=== PATIENT | female | born 1955 | race Caucasian/White ===

== ENCOUNTER 2025-05-29 20:42 | Emergency (ER) | payer OTHER, SELFPAY ==
[2025-05-29] VITALS (14 sets, daily range): BP systolic 148–219; BP diastolic 79–119; PULSE 76–135; RESP 15–26; TEMP 36.7; O2SAT 97–99; BMI 27.4
--- NOTE | 2025-05-29 21:04 | EKG_ITS ---
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
--- NOTE | 2025-05-29 21:13 | ED.TRAUMA ---
HPI - Trauma General Chief Complaint: Trauma Stated Complaint: Fall, trauma to face Time Seen by Provider: 05/29/25 21:12 Source: patient Mode of arrival: Ambulatory History of Present Illness HPI narrative: Patient is a 69-year-old female with a past medical history of AFib on Eliquis comes into the ED from home for evaluation mechanical trip and fall, states that she fell on her face, no LOC, was able to stand bear weight ambulate immediately after, states that she tripped on the tip of her sandals. She is only complaining of some pain to her teeth, states that she feels like she broke her tooth. She states that she is also feeling some pain to her sternum after the fall. But denies any other symptoms at this time. Denies any syncopal or presyncopal symptoms. Related Data Allergies Allergy/AdvReac Type Severity Reaction Status Date / Time Sulfa (Sulfonamide Allergy Mild Hives Verified 05/29/25 21:03 Antibiotics) Review of Systems Review of Systems Narrative: General: Positive ground level fall Denies fever, chills, weight loss HEENT: Positive broken tooth Denies headache, eye drainage, eye irritation, sore throat, voice change Cardiovascular: Denies any chest pain, palpitations, tachycardia Respiratory: Denies any shortness of breath, cough, wheeze, stridor GI/: Denies any abdominal pain, nausea, vomiting, diarrhea, bright red blood per rectum, melanotic stools, urinary frequency, urinary retention, dysuria, hematuria MSK: Denies any joint pain, muscle pains, swelling Skin: Denies any rashes, lesions, discoloration Neuro: Denies any headache, lightheadedness, dizziness, fainting, weakness Psych: Denies SI/HI Patient History Social History Smoking Status: Never smoker Smoking Status: Never smoker Exam Narrative Exam Narrative: General: Cooperative, well-developed, not in acute distress HEENT: Bleeding noted to the mouth, PERRLA, normal sclera, eyelids normal, no tenderness to palpation of the midline cervical spine however did place patient in cervical collar for precautions Neck: Active full range of motion, atraumatic Chest: Normal to inspection, negative crepitus, no overlying erythema ecchymosis Respiratory: Normal respiratory effort, not in acute respiratory distress, clear to auscultation bilaterally negative cough, wheeze, tachypnea, rhonchi, rales Cardiology: Regular rate rhythm negative gallop, murmur, rubs GI/: No tenderness to palpation, soft, non rigid, normal to inspection, exam deferred MSK: Full active range of motion in all 4 extremities, atraumatic, no tenderness to palpation of any bony prominences Skin: No rashes or lesions noted Neuro: Alert awake oriented x3, moves all 4 extremities spontaneously, cranial nerves intact, able to answer all questions appropriately follows commands appropriately Psych: Cooperative, negative suicidal or homicidal ideations Initial Vital Signs Initial Vital Signs: Vital Signs Temperature 98.0 F 05/29/25 20:59 Pulse Rate 115 H 05/29/25 20:59 Respiratory Rate 20 05/29/25 20:59 Blood Pressure 148/89 H 05/29/25 20:59 Pulse Oximetry 99 05/29/25 20:59 Oxygen Delivery Method Room Air 05/29/25 20:59 Course Orders Ordered: ED Orders 05/29/25 21:04 EKG-12 Lead Stat 05/29/25 21:15 CT cervical spine wo con Stat CT chest wo con Stat CT head/brain wo con Stat BMP [Basic Metabolic Panel] Stat CBC Auto Diff [Complete Blood Count AUTO DIFF] Stat PT [Prothrombin Time INR] Stat PTT Partial Thromboplastin Michael Stat Discontinued Medications Hydromorphone HCl (Hydromorphone 1 Mg Inj) 1 mg IV NOW ONE Stop: 05/29/25 23:21 Last Admin: 05/29/25 23:22 Dose: 1 mg Documented By: Morphine Sulfate (Morphine 4 Mg/Ml Inj) 4 mg IV NOW ONE Stop: 05/29/25 21:16 Last Admin: 05/29/25 21:21 Dose: 4 mg Documented By: WINDY Morphine Sulfate (Morphine 4 Mg/Ml Inj) 4 mg IV NOW ONE Stop: 05/29/25 21:53 Last Admin: 05/29/25 22:01 Dose: 4 mg Documented By: Prothrombin Complex Concent (Human) (Prothrombin Cplx(Pcc)4fact 1,000 Unit/40 Ml Vial) 2,000 unit IV NOW ONE Stop: 05/29/25 22:35 Last Admin: 05/29/25 22:57 Dose: 2,000 unit Documented By: Vital Signs Vital signs: Vital Signs - 8 hr 05/29/25 20:59 05/29/25 21:07 05/29/25 21:08 Temperature 98.0 F Pulse Rate 115 H 128 H Respiratory Rate 20 Blood Pressure 148/89 H 154/86 H Pulse Oximetry 99 Oxygen Delivery Method Room Air 05/29/25 21:08 05/29/25 21:30 05/29/25 21:30 Temperature Pulse Rate 135 H 78 Respiratory Rate 23 21 Blood Pressure 163/98 H Pulse Oximetry Oxygen Delivery Method 05/29/25 21:51 05/29/25 21:51 05/29/25 22:00 Temperature Pulse Rate 124 H 76 Respiratory Rate 20 19 Blood Pressure 179/105 H Pulse Oximetry 99 99 Oxygen Delivery Method Room Air 05/29/25 22:00 05/29/25 22:30 05/29/25 22:31 Temperature Pulse Rate 83 Respiratory Rate 25 H Blood Pressure 165/88 H 219/98 H Pulse Oximetry 98 Oxygen Delivery Method 05/29/25 22:31 05/29/25 22:39 05/29/25 22:40 Temperature Pulse Rate 83 84 Respiratory Rate 23 15 Blood Pressure 180/90 H Pulse Oximetry 99 98 Oxygen Delivery Method Room Air MDM - Trauma Differential Diagnosis Differential diagnosis: Likely other (Closed head injury, rib fracture, tooth avulsion/fracture, ground level fall, contusion) Lab Data 05/29/25 21:15 05/29/25 21:15 Labs: Lab Results 05/29/25 Range/Units 21:15 WBC 7.2 (4.5-11.0) X10^3/uL RBC 4.55 (4.0-5.2) X10^6/uL Hgb 12.1 (12.0-16.0) g/dL Hct 37.0 (36-46) % MCV 81.3 (80-100) fL MCH 26.6 (26-34) PG MCHC 32.8 (30-36) % RDW 16.2 H (11.6-14.8) % Plt Count 216 (150-400) X10^3/uL Neut % (Auto) 53.9 (50-75) % Lymph % (Auto) 36.3 (25-40) % [place] % (Auto) 6.5 (3-14) % Eos % (Auto) 2.3 (2-4) % Baso % (Auto) 1.0 (0-2) % Neut # (Auto) 3900 (7053-2483) /uL Lymph # (Auto) 2600 (4776-7599) /uL [place] # (Auto) 500 (0-900) /uL Eos # (Auto) 200 (0-450) /uL Baso # (Auto) 100 (0-100) /uL PT 11.5 (9.4-12.5) SECONDS INR 1.0 (0.9-1.3) APTT 31 (25.1-36.5) SECONDS Sodium 141 (137-145) mmol/L Potassium 4.2 (3.4-5.1) mmol/L Chloride 110 H (98-107) mmol/L Carbon Dioxide 20 L (22-32) mmol/L BUN 29 H (7-17) mg/dL Creatinine 1.03 (0.52-1.04) mg/dL Estimated GFR 59 L (>60) mL/min BUN/Creatinine Ratio 28.2 H (6-22) Glucose 181 H (70-99) mg/dL Calcium 9.4 (8.4-10.2) mg/dL Imaging Data CT scan - chest: Radiologist's Impression: [place] [address] CT Scan Report Signed Patient: Juana Chris MR#: [id number] : 1955 Acct:[id number] Age/Sex: 69 / F Date of Service: 05/29/25 Loc: ED Accession Number: [id number] Procedure: CT chest wo con Ordering Provider: René Oliver D.O. PROCEDURE: CT CHEST WO CON INDICATIONS: trauma, sternal pain TECHNIQUE: Noncontrast 5 mm thick sections acquired from the pulmonary apices to the posterior costophrenic angles. 1 mm lung window, 5 mm thick coronal and sagittal and 7 mm axial MIP reformats were then acquired. For radiation dose reduction, the following was used: automated exposure control, adjustment of mA and/or kV according to patient size. COMPARISON: None. FINDINGS: Image quality: Diagnostic. Lower Neck: No enlarged lymph nodes. Thyroid: No thyroid nodules which require sonographic follow up, per consensus guidelines. Axillae: No enlarged lymph nodes. Chest Wall: Unremarkable. Bones: Healing right anterior rib fractures the anterior right 4th through 7th ribs. Lungs and Pleura: No pneumothorax or pleural effusions. 4 mm solid nodule, lateral right upper lobe (series 3, image 124). A few endobronchial secretions. No pneumothorax or effusion. Heart: Heart size is enlarged. No pericardial effusion. Marked 2 vessel coronary artery calcifications for age. Thoracic Vessels: The aorta and pulmonary arteries demonstrate normal size. Mediastinum and [place]: No enlarged lymph nodes. Esophagus: No wall thickening. No hiatal hernia. Upper Abdomen: Visualized upper abdomen solid organs and bowel loops appear normal. IMPRESSION: No acute abnormality. Healing right anterior 4th through 7th ribs. No pneumothorax. Marked coronary artery calcifications for age. Correlate with risk factors and advise counseling. CT scan - head: Radiologist's Impression: [place] [address] CT Scan Report Signed Patient: Juana Chris MR#: [id number] : 1955 Acct:[id number] Age/Sex: 69 / F Date of Service: 05/29/25 Loc: ED Accession Number: [id number] Procedure: CT head/brain wo con Ordering Provider: René Oliver D.O. PROCEDURE: CT HEAD/BRAIN WO CON INDICATIONS: Trauma, on eliquis TECHNIQUE: Noncontrast 4.5 mm thick angled axial sections acquired from the foramen magnum to the vertex, with coronal and sagittal reformats. For radiation dose reduction, the following was used: automated exposure control, adjustment of mA and/or kV according to patient size. COMPARISON: None. FINDINGS: Image quality: Diagnostic. CSF spaces: Tiny subdural hematoma along the anterior falx, max thickness of 3 mm. Brain: No intracranial bleeds or mass effect. There is cerebral volume loss, with resultant ventricular and sulcal prominence. There are periventricular and deep white matter chronic small vessel ischemic changes. There is intracranial internal carotid artery atherosclerosis. Skull and face: Calvarium and visualized facial bones appear intact, without suspicious lesions. Sinuses: Visualized sinuses and mastoids are clear. IMPRESSION: Tiny subdural hematoma along the anterior fax, max diameter 3 mm. No midline shift or herniation. CT - cervical spine: Radiologist's Impression: [address] [address] [address] Scan Report Signed Patient: Juana Chris MR#: [id number] : 1955 Acct:[id number] Age/Sex: 69 / F Date of Service: 05/29/25 Loc: ED Accession Number: [id number] Procedure: CT cervical spine wo con Ordering Provider: René Oliver D.O. PROCEDURE: CT CERVICAL SPINE WO CON INDICATIONS: trauma TECHNIQUE: Noncontrast 3 mm thick sections acquired from the skull base to the T4 level. Sagittal and coronal reformats were then constructed. For radiation dose reduction, the following was used: automated exposure control, adjustment of mA and/or kV according to patient size. COMPARISON: None. FINDINGS: Image quality: Excellent. Bones: No fractures or dislocations. Visualized superior ribs are intact. Soft tissues: Prevertebral soft tissues are normal in thickness. No paravertebral hematomas. No apical pneumothoraces. IMPRESSION: No visualized fracture. ECG Data Interpretation: EKG interpreted ED physician atrial fibrillation 115 beats per minute QTC 478, normal axis nonspecific ST changes no STEMI MDM Narrative Medical decision making narrative: Patient is a 69-year-old female with a past medical history of AFib on Eliquis coming into the ED from home for evaluation of ground level fall. She states that just prior to arrival she tripped on the tip of her sandal, was able to stand bear weight ambulate immediately after, she is just complaining of pain to her mouth, states that she feels like she may have broken a tooth. CT scan of the chest and neck without any acute fractures however CT scan of the head does show 3 mm subdural hematoma of the anterior falx. 2222: Had discussion with [facility], patient accepted to transfer ED to ED accepting doctor is Dr. Meng 2230: Patient was re-evaluated no new complaints at this time, still without any focal deficits GCS 15, patient agreeable with transfer, also got consent to reverse patient risks benefits was obtained with the patient understands and agrees with this plan 2334: Patient was evaluated with transport at bedside, no new symptoms, vital signs stable safe for transfer to outside hospital Discharge Plan Departure Patient Disposition: [facility] Clinical Impression: Acute subdural hematoma
[2025-05-29] MEDS: MORPHINE 4 MG/ML INJ IV ×2 (21:21→22:01)
--- NOTE | 2025-05-29 21:55 | PC.NURSE ---
Pt continues to remain painful. MD notified. New orders received and implemented. suctioned gently top teeth of blood. Pt tolerated well.
[2025-05-29 22:39] LABS: INR 1.0 (0.9-1.3); Prothrombin Time 11.5 SECONDS (9.4-12.5)
[2025-05-29 22:40] LABS: Add Manual Diff / Slide Review NO; Hematocrit 37.0 % (36-46); Hemoglobin 12.1 g/dL (12.0-16.0); Lymphocytes Absolute Auto 2600 /uL (1100-4500); Mean Corpuscular HGB Conc 32.8 % (30-36); Mean Corpuscular Hemoglobin 26.6 PG (26-34); Mean Corpuscular Volume 81.3 fL (80-100); Platelet Count 216 X10^3/uL (150-400)
[2025-05-29 22:42] LABS: Blood Urea Nitrogen 29 mg/dL (7-17); Calcium 9.4 mg/dL (8.4-10.2); Carbon Dioxide 20 mmol/L (22-32); Chloride 110 mmol/L (98-107); Estimated Glomerular Filt Rate 59 mL/min (>60); Glucose 181 mg/dL (70-99); HEMOLYSIS < 15 (0-50); PTT Partial Thromboplastin Tim 31 SECONDS (25.1-36.5); Potassium 4.2 mmol/L (3.4-5.1); Sodium 141 mmol/L (137-145)
--- NOTE | 2025-05-29 22:42 | PC.NURSE ---
aware of elevated BP. 180/90
[2025-05-29] MEDS: PROTHROMBIN CPLX(PCC)4FACT 1,000 UNIT/40 ML VIAL 2000 UNIT IV (22:57)
[2025-05-29] MEDS: HYDROMORPHONE 1 MG INJ IV (23:22)
== END 2025-05-29 23:36 | disposition short-term general hospital (02) ==
PROVIDERS: Emergency Provider Student in an Organized Health Care Education/Training Program
DX: S06.5XAA Traumatic subdural hemorrhage with loss of consciousness status unknown, initial encounter (principal); R07.89 Other chest pain; W01.0XXA Fall on same level from slipping, tripping and stumbling without subsequent striking against object, initial encounter; Z79.01 Long term (current) use of anticoagulants
CPT/HCPCS: 70450; 71250; 72125; 80048; 85025; 85610; 85730; 93005; 96374; 96375; 96376; 99284; 99291; J1171; J2270; J7168